=== PATIENT | female | born 1950 | race Caucasian/White ===

== ENCOUNTER 2017-05-27 14:27 | Observation (INO) | payer MEDICARE, MEDICAID ==
[~2017-05-27] VITALS: Ht 162.6 cm; Wt 49.0 kg
[~2017-05-27 14:27] MED LIST: ALBU18HF INH; ALBU2.5V NPPB; ALBU8.5H5 INH; ALBUTERO; AZIT250T89 PO; BUPR100T11 PO; BUPR100T8 PO; CEFD300C37 PO; CITA20TA5 PO; CYCL-259 PO; DIPH25CA61 PO; DIVA-68 PO; DIVA250T4 PO; DIVA500T2 PO; ERGO500017 PO; ETOD200C2 PO; ETOD400T2 PO; FLUT1DIS3 INH; HYDR-3240 PO; HYDR25CA PO; HYDR25TA11 PO; IBUP-1222 PO; IPRA12.9 INH; LACT10SO5 PO; LORA2TAB99 PO; METH750T2 PO; METH750T87 PO; MOTRIN PO; NAPR550T30 PO; NICO1PAT10 TD; NICO1PAT5 TD; OLAN10TA9 PO; OLAN15TA3 PO; OLAN2.5T3 PO; OLAN20TA7 PO; OLAN5TAB3 PO; OMEP-110 PO; OXYC5TAB3 PO; PANT40TA3 PO; QUET200T PO; QUET25TA5 PO; QUET50TA5 PO; RISP1TAB45 PO; SENN1TAB7 PO; SENN1TAB9 PO; SULF1TAB3 PO; TIOT18CA INH; TRAM50TA2 PO; TRAZ50TA18 PO
[2017-05-27 15:00] LABS: DAU SCREEN DISCLAIMER
[2017-05-27 15:14] LABS: BLOOD UREA NITROGEN 6 mg/dL (7-18)
[2017-05-27 15:26] LABS: DIFF TOTAL CELLS COUNTED 100 CELL DIFF; HEMATOCRIT 35.3 % (34.6-47.8); HEMOGLOBIN 11.2 g/dL (11.7-16.4); WHITE BLOOD COUNT 4.1 x10^3/uL (3.4-10)
[2017-05-27 15:35] LABS: VERIFY COUNTS? YES
[2017-05-27 15:36] LABS: ANISOCYTOSIS 1+; HYPOCHROMIA 1+; MICROCYTOSIS 1+; OVALOCYTES 1+; POLYCHROMASIA 1+
[2017-05-27 15:38] LABS: LARGE PLATELETS 1+
[2017-05-27 15:44] LABS: ACETAMINOPHEN < 2 mcg/mL (10-30)
[2017-05-27] MEDS ORDERED: NICOTINE 21 MG/24 HR PATCH.TD24 TD ONE (18:30)
[2017-05-27 18:44] LABS: FERRITIN 7.6 ng/mL (8-252)
[2017-05-27 19:56] VITALS: BP 109/64
[2017-05-27] MEDS ORDERED: OLANZAPINE 5 MG TABLET ONE (20:02)
[2017-05-27] MEDS: DIVALPROEX 500 MG TABLET.DR PO SCH (20:06)
[2017-05-27] MEDS ORDERED: OLANZAPINE 10 MG TABLET PO SCH (21:00)
[2017-05-27] MEDS ORDERED: OLANZAPINE 5 MG TABLET PO SCH (21:00)
[2017-05-28 08:50] VITALS: BP 119/77
[2017-05-28] MEDS: DIVALPROEX 500 MG TABLET.DR PO SCH (09:17)
[2017-05-28] MEDS ORDERED: FERR325T20 PO (11:35)
[2017-05-28] MEDS ORDERED: HYDR25TA11 PO (11:35)
[2017-05-28] MEDS ORDERED: OLAN5TAB9 PO (11:35)
[2017-05-28] MEDS ORDERED: DIVA-68 PO (11:35)
== END 2017-05-28 13:30 ==
LOC: ED 18:20 → EDIP 18:30 → 3E 19:09
PROVIDERS: ADMIT Family Medicine; ATTEND Family Medicine
DX: R45.851 Suicidal ideations (principal); F31.9 Bipolar disorder, unspecified; J44.9 Chronic obstructive pulmonary disease, unspecified; M81.0 Age-related osteoporosis without current pathological fracture; F17.210 Nicotine dependence, cigarettes, uncomplicated; F12.90 Cannabis use, unspecified, uncomplicated; F15.90 Other stimulant use, unspecified, uncomplicated; E61.1 Iron deficiency; R45.850 Homicidal ideations; Z80.3 Family history of malignant neoplasm of breast; Z91.5 Personal history of self-harm; Z91.19 Patient's noncompliance with other medical treatment and regimen; Z90.49 Acquired absence of other specified parts of digestive tract; Z90.710 Acquired absence of both cervix and uterus; Z91.14 Patient's other noncompliance with medication regimen
CPT/HCPCS: 36415; 80048; 80307; 80329; 82040; 82728; 83540; 83550; 85025; 99285; G0378; G0480

== ENCOUNTER 2017-09-25 13:21 | Inpatient (IN) | payer MEDICARE, MEDICAID ==
[~2017-09-25] VITALS: Ht 157.5 cm; Wt 42.5 kg
[~2017-09-25 13:21] MED LIST changes: +FERR325T18 PO; +NAPR-850 PO; -NAPR550T30 PO; +NICO-485 TD; +NICO-487 TD; -NICO1PAT10 TD; -NICO1PAT5 TD; +OLAN5TAB9 PO; +SULF-169 PO; -SULF1TAB3 PO
[2017-09-25] MEDS ORDERED: SODIUM CHLORIDE 0.9% 1,000ML IVBOLUS ONE (13:30)
[2017-09-25] MEDS ORDERED: SODIUM CHLORIDE FLUSH 10ML SYR IVF ONE (13:30)
[2017-09-25] MEDS ORDERED: SODIUM CHLORIDE 0.9% 1,000 ML IV ONE (13:30)
[2017-09-25 13:59] LABS: BASOPHILS # (AUTO) 0.05 x10^3/uL (0-0.1); BASOPHILS % (AUTO) 1 % (0-1); EOSINOPHILS # (AUTO) 0.08 x10^3/uL (0-0.4); EOSINOPHILS % (AUTO) 2 % (1-7); LYMPHOCYTES # (AUTO) 1.43 x10^3/uL (1-3.4); LYMPHOCYTES % (AUTO) 38 % (22-44); MD NO; MEAN CORPUSCULAR HEMOGLOBIN 31.7 pg (27.0-34.8); MEAN CORPUSCULAR HGB CONC 34.4 g/dL (32.4-35.8); MEAN CORPUSCULAR VOLUME 92.3 fL (80-100); MEAN PLATELET VOLUME 8.6 fL (7.4-10.4); MONOCYTES # (AUTO) 0.42 x10^3/uL (0.2-0.8); MONOCYTES % (AUTO) 11 % (2-9); NEUTROPHILS % (AUTO) 48 % (42-75); PLATELET COUNT 209 x10^3/uL (130-400); RED BLOOD COUNT 4.88 x10^6/uL (3.82-5.3); RED CELL DISTRIBUTION WIDTH 16.4 % (9.6-15.2)
[2017-09-25 14:05] LABS: INTERNATIONAL NORMALIZED RATIO 1.14 (0.93-1.1); PROTHROMBIN TIME 11.7 Seconds (9.6-11.5)
[2017-09-25 14:09] LABS: ALBUMIN 3.7 g/dL (3.4-5.0); ANION GAP 15 mmol/L (5-15); CHLORIDE 105 mmol/L (98-107)
[2017-09-25 14:14] LABS: ALANINE AMINOTRANSFERASE 22 U/L (12-78); ALKALINE PHOSPHATASE 70 U/L (45-117); CREATINE KINASE, TOTAL 250 U/L (26-192); CREATININE 0.63 mg/dL (0.55-1.02); TOTAL PROTEIN 7.5 g/dL (6.4-8.2); TROPONIN I 0.016 ng/mL (0.000-0.045)
[2017-09-25 14:44] LABS: CULTURE INDICATED? YES; MICROSCOPIC INDICATED
[2017-09-25] MEDS ORDERED: SODIUM CHLORIDE FLUSH 10ML SYR IVF PRN (17:00)
[2017-09-25] MEDS ORDERED: ONDANSETRON ODT 4 MG PO PRN (17:00)
[2017-09-25] MEDS ORDERED: GUAIFENESIN/DM 200-20MG, 10ML UDC PO PRN (17:00)
[2017-09-25] MEDS ORDERED: LABETALOL 5MG/ML, 20ML IVPush PRN (17:00)
[2017-09-25] MEDS ORDERED: POLYETHYLENE GLYCOL 17 GM PACKET PO PRN (17:00)
[2017-09-25] MEDS ORDERED: ONDANSETRON 2MG/ML, 2ML IVPush PRN (17:00)
[2017-09-25 17:28] LABS: INTERNATIONAL NORMALIZED RATIO 1.13 (0.93-1.1); PROTHROMBIN TIME 11.6 Seconds (9.6-11.5)
[2017-09-25 17:45] LABS: FREE T4 (FREE THYROXINE) 1.13 ng/dL (0.76-1.46); TROPONIN I 0.027 ng/mL (0.000-0.045)
[2017-09-25 18:22] VITALS: BP 124/76
[2017-09-25] MEDS: SODIUM CHLORIDE 0.9% 1,000 ML IV SCH (18:31)
[2017-09-25] MEDS: FERROUS SULFATE 325 MG TABLET PO SCH (19:35)
[2017-09-25] MEDS: HYDROcodone/APAP 5/325 TABLET PO PRN (19:35)
[2017-09-25] MEDS: DIVALPROEX 500 MG TABLET.DR PO SCH (19:35)
[2017-09-25] MEDS: ENOXAPARIN 40 MG/0.4 ML SQ SCH (19:36)
[2017-09-25 20:12] VITALS: BP 99/60
[2017-09-25] MEDS: FAMOTIDINE 20 MG/2 ML IVPush SCH (21:17)
[2017-09-25 23:23] LABS: TROPONIN I 0.036 ng/mL (0.000-0.045)
[2017-09-26 01:25] VITALS: BP 106/57
[2017-09-26] MEDS: SODIUM CHLORIDE 0.9% 1,000 ML IV SCH ×2 (02:42→15:17)
[2017-09-26 05:51] LABS: BASOPHILS # (AUTO) 0.03 x10^3/uL (0-0.1); BASOPHILS % (AUTO) 1 % (0-1); EOSINOPHILS % (AUTO) 3 % (1-7); LYMPHOCYTES % (AUTO) 48 % (22-44); MD NO; MEAN CORPUSCULAR HGB CONC 34.5 g/dL (32.4-35.8); MEAN CORPUSCULAR VOLUME 92.6 fL (80-100); MEAN PLATELET VOLUME 8.7 fL (7.4-10.4); MONOCYTES # (AUTO) 0.42 x10^3/uL (0.2-0.8); MONOCYTES % (AUTO) 12 % (2-9); NEUTROPHILS # (AUTO) 1.21 x10^3/uL (1.8-6.8); NEUTROPHILS % (AUTO) 36 % (42-75); PLATELET COUNT 168 x10^3/uL (130-400); RED BLOOD COUNT 4.26 x10^6/uL (3.82-5.3); RED CELL DISTRIBUTION WIDTH 15.9 % (9.6-15.2)
[2017-09-26 06:03] LABS: CHLORIDE 109 mmol/L (98-107)
[2017-09-26 06:15] LABS: ALANINE AMINOTRANSFERASE 18 U/L (12-78); ALBUMIN 2.9 g/dL (3.4-5.0); ALKALINE PHOSPHATASE 58 U/L (45-117); ANION GAP 8 mmol/L (5-15); BILIRUBIN,TOTAL 0.6 mg/dL (0.2-1.0); CALCIUM 8.4 mg/dL (8.5-10.1); CHOL/HDL RATIO 3.5; CHOLESTEROL, TOTAL 129 mg/dL (140-239); CREATININE 0.55 mg/dL (0.55-1.02); HDL CHOL % 29 % (28-40); HDL CHOLESTEROL (DIRECT) 37 mg/dL (40-60); LDL CHOLESTEROL,CALCULATED 79 mg/dL (54-169); LDL/HDL RATIO 2.1 (0.5-3.0); TOTAL PROTEIN 5.9 g/dL (6.4-8.2); TRIGLYCERIDES 66 mg/dL (50-200); VLDL CHOLESTEROL 13 mg/dL (0-25)
[2017-09-26 08:28] VITALS: BP 109/68
[2017-09-26] MEDS: FAMOTIDINE 20 MG/2 ML IVPush SCH ×2 (08:40→21:24)
[2017-09-26] MEDS: FERROUS SULFATE 325 MG TABLET PO SCH ×2 (08:40→21:24)
[2017-09-26] MEDS: SENNA/DOCUSATE TABLET PO SCH (08:40)
[2017-09-26] MEDS: DIVALPROEX 500 MG TABLET.DR PO SCH ×2 (08:40→21:24)
[2017-09-26] MEDS ORDERED: MAGNESIUM SULFATE PMX 2GM/50ML 50 ML IV ONE (10:00)
[2017-09-26 14:30] VITALS: BP 112/72
[2017-09-26] MEDS: HYDROcodone/APAP 5/325 TABLET PO PRN ×2 (15:16→21:24)
[2017-09-26 19:30] VITALS: BP 102/63
[2017-09-26] MEDS: ENOXAPARIN 40 MG/0.4 ML SQ SCH (21:24)
[2017-09-27 01:48] VITALS: BP 110/62
[2017-09-27] MEDS: SODIUM CHLORIDE 0.9% 1,000 ML IV SCH ×3 (03:50→16:37)
[2017-09-27 08:00] VITALS: BP 142/80
[2017-09-27 08:10] LABS: ALBUMIN 2.7 g/dL (3.4-5.0); CALCIUM 7.9 mg/dL (8.5-10.1); CHLORIDE 112 mmol/L (98-107)
[2017-09-27 08:15] LABS: ALANINE AMINOTRANSFERASE 18 U/L (12-78); ALKALINE PHOSPHATASE 52 U/L (45-117); ANION GAP 6 mmol/L (5-15); BILIRUBIN,TOTAL 0.6 mg/dL (0.2-1.0); CREATININE 0.41 mg/dL (0.55-1.02); TOTAL PROTEIN 5.6 g/dL (6.4-8.2)
[2017-09-27 08:17] LABS: MEAN CORPUSCULAR HEMOGLOBIN 32.6 pg (27.0-34.8); MEAN CORPUSCULAR HGB CONC 35.3 g/dL (32.4-35.8); MEAN CORPUSCULAR VOLUME 92.4 fL (80-100); MEAN PLATELET VOLUME 8.9 fL (7.4-10.4); PLATELET COUNT 158 x10^3/uL (130-400); RED BLOOD COUNT 4.06 x10^6/uL (3.82-5.3)
[2017-09-27] MEDS: FERROUS SULFATE 325 MG TABLET PO SCH ×2 (08:53→20:28)
[2017-09-27] MEDS: DIVALPROEX 500 MG TABLET.DR PO SCH ×2 (08:53→20:28)
[2017-09-27] MEDS: SENNA/DOCUSATE TABLET PO SCH (08:53)
[2017-09-27] MEDS: FAMOTIDINE 20 MG/2 ML IVPush SCH (08:53)
[2017-09-27 09:10] LABS: BASOPHILS # (AUTO) 0.03 x10^3/uL (0-0.1); BASOPHILS % (AUTO) 1 % (0-1); EOSINOPHILS # (AUTO) 0.08 x10^3/uL (0-0.4); EOSINOPHILS % (AUTO) 3 % (1-7); LYMPHOCYTES # (AUTO) 1.25 x10^3/uL (1-3.4); LYMPHOCYTES % (AUTO) 52 % (22-44); MD SCAN; MONOCYTES # (AUTO) 0.23 x10^3/uL (0.2-0.8); MONOCYTES % (AUTO) 10 % (2-9); NEUTROPHILS # (AUTO) 0.82 x10^3/uL (1.8-6.8); NEUTROPHILS % (AUTO) 34 % (42-75)
[2017-09-27] MEDS ORDERED: IBUPROFEN 200 MG TABLET PO PRN (09:30)
[2017-09-27] MEDS ORDERED: POTASSIUM CHLORIDE 20 MEQ TAB.ER.PRT PO ONE (13:00)
[2017-09-27 14:34] VITALS: BP 146/78
[2017-09-27 16:25] LABS: ANION GAP 9 mmol/L (5-15); CALCIUM 7.8 mg/dL (8.5-10.1); CHLORIDE 109 mmol/L (98-107); CREATININE 0.57 mg/dL (0.55-1.02)
[2017-09-27 16:31] LABS: CREATINE KINASE, TOTAL 170 U/L (26-192)
[2017-09-27 19:58] VITALS: BP 99/59
[2017-09-27] MEDS: FAMOTIDINE 20 MG TABLET PO SCH (20:28)
[2017-09-27] MEDS: ENOXAPARIN 40 MG/0.4 ML SQ SCH (20:28)
[2017-09-28 02:00] VITALS: BP 104/76
[2017-09-28] MEDS: SODIUM CHLORIDE 0.9% 1,000 ML IV SCH (06:46)
[2017-09-28 07:05] VITALS: BP 111/69
[2017-09-28] MEDS ORDERED: POTASSIUM CHLORIDE 20 MEQ TAB.ER.PRT PO ONE (08:00)
[2017-09-28] MEDS: SENNA/DOCUSATE TABLET PO SCH (09:00)
[2017-09-28] MEDS: DIVALPROEX 500 MG TABLET.DR PO SCH (09:06)
[2017-09-28] MEDS: FAMOTIDINE 20 MG TABLET PO SCH (09:06)
[2017-09-28] MEDS: FERROUS SULFATE 325 MG TABLET PO SCH (09:07)
[2017-09-28 11:30] LABS: ANION GAP 6 mmol/L (5-15); CHLORIDE 111 mmol/L (98-107); CREATININE 0.43 mg/dL (0.55-1.02)
[2017-09-28 12:59] VITALS: BP 119/78
[2017-09-28] MEDS ORDERED: FAMO20TA7 PO (15:58)
== END 2017-09-28 18:54 | DRG 557 ==
LOC: ED 14:52 → EDIP 16:37 → 4EST 17:41
PROVIDERS: ADMIT Hospitalist; ATTEND Hospitalist
PROC: 0T9B70Z Drainage of Bladder with Drainage Device, Via Natural or Artificial Opening (ICD-10-PCS; principal; 2017-09-25)
DX: M62.82 Rhabdomyolysis (principal); E43 Unspecified severe protein-calorie malnutrition; Z93.0 Tracheostomy status; J44.9 Chronic obstructive pulmonary disease, unspecified; R62.7 Adult failure to thrive; E87.6 Hypokalemia; R73.9 Hyperglycemia, unspecified; E86.0 Dehydration; M81.0 Age-related osteoporosis without current pathological fracture; F17.210 Nicotine dependence, cigarettes, uncomplicated; F31.9 Bipolar disorder, unspecified; F41.1 Generalized anxiety disorder; Z80.0 Family history of malignant neoplasm of digestive organs; Z80.3 Family history of malignant neoplasm of breast; Z83.3 Family history of diabetes mellitus; Z90.710 Acquired absence of both cervix and uterus; Z90.49 Acquired absence of other specified parts of digestive tract; Z88.0 Allergy status to penicillin
CPT/HCPCS: 36415; 70450; 71010; 80048; 80053; 80061; 81001; 82140; 82550; 83605; 83690; 83735; 84100; 84311; 84439; 84484; 84550; 85025; 85610; 85730; 87040; 87086; 93005; 93306; 96360; 96361; J1650; J3475; J7030; S0028

== ENCOUNTER 2017-12-31 19:45 | Emergency (ER) | payer MEDICARE, MEDICAID ==
[~2017-12-31] VITALS: Ht 162.6 cm; Wt 55.0 kg
[~2017-12-31 19:45] MED LIST changes: +FAMO20TA7 PO
[2017-12-31 19:47] VITALS: BP 120/78
[2017-12-31] MEDS ORDERED: LAMO25TB PO (21:08)
[2017-12-31] MEDS ORDERED: ALPR0.254 PO (21:08)
[2017-12-31] MEDS ORDERED: LEVO25TA4 PO (21:09)
== END 2017-12-31 21:53 | disposition home or self-care (01) ==
LOC: ED 21:45
DX: F41.1 Generalized anxiety disorder (principal); F31.9 Bipolar disorder, unspecified; G89.29 Other chronic pain; J44.9 Chronic obstructive pulmonary disease, unspecified
CPT/HCPCS: 82962; 93005; 99284

== ENCOUNTER 2018-06-03 16:58 | Observation (INO) | payer MEDICARE, MEDICAID ==
[~2018-06-03] VITALS: Ht 162.6 cm; Wt 48.0 kg
[~2018-06-03 16:58] MED LIST changes: +ALPR0.254 PO; -CITA20TA5 PO; +CITA20TA6 PO; +DIVA-61 PO; -DIVA-68 PO; +LAMO25TB7 PO; +LEVO25TA4 PO; +OLAN20TA3 PO; +TRAZ-136 PO; -TRAZ50TA18 PO
[2018-06-03] MEDS ORDERED: LORazepam 1MG TABLET PO ONE (17:30)
[2018-06-03] MEDS ORDERED: LORazepam 1MG TABLET ONE (17:37)
[2018-06-03 17:47] LABS: BASOPHILS # (AUTO) 0.05 x10^3/uL (0-0.1); BASOPHILS % (AUTO) 1 % (0-1); EOSINOPHILS % (AUTO) 2 % (1-7); LYMPHOCYTES # (AUTO) 2.19 x10^3/uL (1-3.4); LYMPHOCYTES % (AUTO) 38 % (22-44); MD NO; MEAN CORPUSCULAR HEMOGLOBIN 33.9 pg (27.0-34.8); MEAN CORPUSCULAR HGB CONC 34.5 g/dL (32.4-35.8); MEAN CORPUSCULAR VOLUME 98.3 fL (80-100); MEAN PLATELET VOLUME 7.8 fL (7.4-10.4); MONOCYTES # (AUTO) 0.49 x10^3/uL (0.2-0.8); MONOCYTES % (AUTO) 8 % (2-9); NEUTROPHILS % (AUTO) 51 % (42-75); PLATELET COUNT 314 x10^3/uL (130-400); RED BLOOD COUNT 4.65 x10^6/uL (3.82-5.3); RED CELL DISTRIBUTION WIDTH 13.6 % (9.6-15.2)
[2018-06-03 17:54] LABS: ALBUMIN 4.2 g/dL (3.4-5.0); ANION GAP 9 mmol/L (5-15); CALCIUM 8.8 mg/dL (8.5-10.1); CHLORIDE 111 mmol/L (98-107); CREATININE 0.94 mg/dL (0.55-1.02); SALICYLATE LEVEL 10.9 mg/dL (2.8-20.0)
[2018-06-03 17:58] LABS: AMPHETAMINE SCREEN, URINE Negative (Negative); BARBITURATE SCREEN, URINE Negative (Negative); BENZODIAZEPINE SCREEN, URINE Negative (Negative); CANNABINOID SCREEN, URINE Negative (Negative); COCAINE SCREEN, URINE Negative (Negative); METHADONE SCREEN, URINE Negative (Negative); OPIATE SCREEN, URINE Negative (Negative)
[2018-06-03 18:07] LABS: ACETAMINOPHEN < 2 mcg/mL (10-30)
[2018-06-03] MEDS ORDERED: POLYETHYLENE GLYCOL 17 GM PACKET PO PRN (19:30)
[2018-06-03] MEDS ORDERED: ACETAMINOPHEN 325 MG TABLET PO PRN (19:30)
[2018-06-03] MEDS ORDERED: ONDANSETRON ODT 4 MG PO PRN (19:30)
[2018-06-03 20:07] VITALS: BP 122/68
[2018-06-04] MEDS ORDERED: LEVOTHYROXINE 25 MCG TABLET PO SCH ×2 (06:00→09:00)
== END 2018-06-04 06:26 ==
LOC: ED 18:16 → EDIP 18:17 → ED 18:30 → 2N 19:48
PROVIDERS: ADMIT Hospitalist; ATTEND Hospitalist
DX: F41.9 Anxiety disorder, unspecified (principal); F41.0 Panic disorder [episodic paroxysmal anxiety]; E03.9 Hypothyroidism, unspecified; F31.9 Bipolar disorder, unspecified; J44.9 Chronic obstructive pulmonary disease, unspecified; M81.0 Age-related osteoporosis without current pathological fracture; R45.851 Suicidal ideations; F17.200 Nicotine dependence, unspecified, uncomplicated; Z90.710 Acquired absence of both cervix and uterus; Z91.14 Patient's other noncompliance with medication regimen
CPT/HCPCS: 36415; 80048; 80307; 80329; 82040; 84443; 85025; 99285; G0378; G0480

== ENCOUNTER 2019-02-13 15:24 | Emergency (ER) | payer MEDICARE, MEDICAID ==
[~2019-02-13] VITALS: Ht 162.6 cm; Wt 71.1 kg
[~2019-02-13 15:24] MED LIST changes: +SENN-177 PO; +SENN-178 PO; -SENN1TAB7 PO; -SENN1TAB9 PO; -TRAZ-136 PO; +TRAZ50TA66 PO
[2019-02-13 16:29] LABS: BASOPHILS # (AUTO) 0.09 x10^3/uL (0-0.1); BASOPHILS % (AUTO) 1 % (0-1); EOSINOPHILS # (AUTO) 0.19 x10^3/uL (0-0.4); EOSINOPHILS % (AUTO) 2 % (1-7); LYMPHOCYTES # (AUTO) 1.78 x10^3/uL (1-3.4); LYMPHOCYTES % (AUTO) 14 % (22-44); MD NO; MEAN CORPUSCULAR HEMOGLOBIN 30.7 pg (27.0-34.8); MEAN CORPUSCULAR HGB CONC 33.3 g/dL (32.4-35.8); MEAN CORPUSCULAR VOLUME 91.9 fL (80-100); MEAN PLATELET VOLUME 8.2 fL (7.4-10.4); MONOCYTES # (AUTO) 1.04 x10^3/uL (0.2-0.8); MONOCYTES % (AUTO) 8 % (2-9); NEUTROPHILS # (AUTO) 9.41 x10^3/uL (1.8-6.8); NEUTROPHILS % (AUTO) 75 % (42-75); PLATELET COUNT 318 x10^3/uL (130-400); RED CELL DISTRIBUTION WIDTH 13.4 % (9.6-15.2)
[2019-02-13 16:40] LABS: ANION GAP 8 mmol/L (5-15); CALCIUM 8.9 mg/dL (8.5-10.1); CHLORIDE 106 mmol/L (98-107)
[2019-02-13 16:41] LABS: CREATININE 1.08 mg/dL (0.55-1.02)
[2019-02-13] MEDS ORDERED: KETOROLAC 30 MG/1 ML ONE (16:58)
[2019-02-13] MEDS ORDERED: KETOROLAC 30 MG/1 ML IM ONE (17:00)
--- NOTE | 2019-02-13 17:07 | NUR ---
Pt presents from home for increasing pain to bilateral lower legs and soles of feet. Worse on L side. Pt states pain has jarrell there x 2 nights. Worsening. Pt states sitting helps for a moment then pain returns. CSM intact with weak pulses on L leg. Pt also had episode of diarrhea while walking to ED.
[2019-02-13 17:24] LABS: CLOSTRIDIUM DIFFICILE ANTIGEN NEGATIVE; CLOSTRIDIUM DIFFICILE TOXIN NEGATIVE (Negative)
[2019-02-13 17:33] LABS: FREE T4 (FREE THYROXINE) 1.02 ng/dL (0.76-1.46)
[2019-02-13 18:58] VITALS: BP 109/76
== END 2019-02-13 19:21 | disposition home or self-care (01) ==
LOC: ED 18:05
DX: R53.1 Weakness (principal); L55.0 Sunburn of first degree; M25.572 Pain in left ankle and joints of left foot; M25.571 Pain in right ankle and joints of right foot; M79.672 Pain in left foot; M79.671 Pain in right foot; Z90.49 Acquired absence of other specified parts of digestive tract; Z90.710 Acquired absence of both cervix and uterus; Z90.89 Acquired absence of other organs; Z88.0 Allergy status to penicillin; Z88.8 Allergy status to other drugs, medicaments and biological substances
CPT/HCPCS: 36415; 73610; 80048; 84439; 84443; 85025; 87324; 89055; 96372; 99284; J1885; 99283

== ENCOUNTER 2019-02-16 13:37 | Emergency (ER) | payer MEDICARE, MEDICAID ==
[~2019-02-16] VITALS: Ht 162.6 cm; Wt 68.0 kg
[2019-02-16 14:14] VITALS: BP 162/85
[2019-02-16 14:25] LABS: BASOPHILS # (AUTO) 0.02 x10^3/uL (0-0.1); BASOPHILS % (AUTO) 0 % (0-1); EOSINOPHILS % (AUTO) 5 % (1-7); LYMPHOCYTES # (AUTO) 1.33 x10^3/uL (1-3.4); LYMPHOCYTES % (AUTO) 18 % (22-44); MD NO; MEAN CORPUSCULAR HEMOGLOBIN 30.7 pg (27.0-34.8); MEAN CORPUSCULAR HGB CONC 33.3 g/dL (32.4-35.8); MEAN CORPUSCULAR VOLUME 92.1 fL (80-100); MEAN PLATELET VOLUME 7.7 fL (7.4-10.4); MONOCYTES # (AUTO) 0.91 x10^3/uL (0.2-0.8); MONOCYTES % (AUTO) 12 % (2-9); NEUTROPHILS # (AUTO) 4.94 x10^3/uL (1.8-6.8); NEUTROPHILS % (AUTO) 65 % (42-75); PLATELET COUNT 335 x10^3/uL (130-400); RED BLOOD COUNT 4.09 x10^6/uL (3.82-5.3); RED CELL DISTRIBUTION WIDTH 13.7 % (9.6-15.2)
[2019-02-16 14:29] LABS: ALANINE AMINOTRANSFERASE 18 U/L (12-78); ALBUMIN 3.4 g/dL (3.4-5.0); ANION GAP 4 mmol/L (5-15); CALCIUM 9.1 mg/dL (8.5-10.1); CHLORIDE 110 mmol/L (98-107); CREATININE 0.92 mg/dL (0.55-1.02)
[2019-02-16 14:31] LABS: ALKALINE PHOSPHATASE 125 U/L (45-117); BILIRUBIN,TOTAL 0.2 mg/dL (0.2-1.0); TOTAL PROTEIN 7.4 g/dL (6.4-8.2)
== END 2019-02-16 17:25 | disposition home or self-care (01) ==
LOC: ED 14:27
DX: L03.116 Cellulitis of left lower limb (principal); L03.115 Cellulitis of right lower limb; F17.200 Nicotine dependence, unspecified, uncomplicated; J44.9 Chronic obstructive pulmonary disease, unspecified; F32.9 Major depressive disorder, single episode, unspecified; F09 Unspecified mental disorder due to known physiological condition; Z90.710 Acquired absence of both cervix and uterus; Z72.89 Other problems related to lifestyle; Z87.01 Personal history of pneumonia (recurrent)
CPT/HCPCS: 36415; 80053; 83605; 85025; 87040; 99283

== ENCOUNTER 2019-08-05 00:41 | Emergency (ER) | payer MEDICARE, MEDICAID ==
[~2019-08-05] VITALS: Ht 162.6 cm; Wt 58.2 kg
[~2019-08-05 00:41] MED LIST changes: +HYDR-826 PO; -HYDR25TA11 PO; +OLAN20TA14 PO; -OLAN20TA7 PO
--- NOTE | 2019-08-05 00:56 | NUR ---
Patient into room, patient speaking to no one in particular. Dishevelled appearance, RN to bedside asked patient to remove sweater to attach patient to monitor, patient verbalizes "Oh yeah, I know, top off." but then patient continues to speak in disconnected sentences for which most of the language is not understandable. Patient sounds upset based on tone and volume, but is not understandable. Awaiting assessment by provider.
--- NOTE | 2019-08-05 01:28 | NUR ---
Medical student to bedside, considerable time spent allowing patient to talk through. Patient appears less anxious, rate of speech has slowed, volume has slowed and patient's untargeted speech has also diminished. Awaiting orders or plan of care.
[2019-08-05] MEDS ORDERED: HALOPERIDOL 5 MG/ML IM ONE (02:00)
[2019-08-05] MEDS ORDERED: HALOPERIDOL 5 MG/ML ONE (02:03)
--- NOTE | 2019-08-05 02:19 | NUR ---
RN to bedside, patient finally agreeable to being placed on monitor. patient provided warm blankets, given medication per mar and attached to blood pressure and SpO2 monitor. VSS. Awaiting metabolization of alcohol. Patient still continues to talk in loose unconnected thoughts with mostly poorly enunciated and not understandable words, but without the volume or rate indicating agitation.
[2019-08-05 04:03] VITALS: BP 101/52
== END 2019-08-05 08:10 | disposition home or self-care (01) ==
LOC: ED 00:56
DX: F31.9 Bipolar disorder, unspecified (principal); F15.129 Other stimulant abuse with intoxication, unspecified; Z72.9 Problem related to lifestyle, unspecified; J44.9 Chronic obstructive pulmonary disease, unspecified; I51.9 Heart disease, unspecified; Z90.49 Acquired absence of other specified parts of digestive tract; Z90.710 Acquired absence of both cervix and uterus
CPT/HCPCS: 96372; 99284; J1630

== ENCOUNTER 2019-08-22 21:50 | Emergency (ER) | payer MEDICARE, MEDICAID ==
[~2019-08-22] VITALS: Ht 162.6 cm; Wt 62.1 kg
[~2019-08-22 21:50] MED LIST changes: +LACT10SO24 PO; -LACT10SO5 PO
[2019-08-22 21:52] VITALS: BP 160/88
== END 2019-08-22 23:07 | disposition home or self-care (01) ==
LOC: ED 23:05
DX: F31.9 Bipolar disorder, unspecified (principal); M81.0 Age-related osteoporosis without current pathological fracture; I51.9 Heart disease, unspecified; J43.9 Emphysema, unspecified; F17.210 Nicotine dependence, cigarettes, uncomplicated; Z72.89 Other problems related to lifestyle; Z90.49 Acquired absence of other specified parts of digestive tract; Z90.710 Acquired absence of both cervix and uterus; Z59.0 Homelessness
CPT/HCPCS: 99284

== ENCOUNTER 2019-08-26 23:50 | Emergency (ER) | payer MEDICARE, MEDICAID ==
[~2019-08-26] VITALS: Ht 157.5 cm; Wt 59.9 kg
[2019-08-27] MEDS ORDERED: KETOROLAC 30 MG/1 ML ONE (00:10)
[2019-08-27] MEDS ORDERED: KETOROLAC 30 MG/1 ML IM ONE (00:30)
[2019-08-27 00:39] LABS: BASOPHILS # (AUTO) 0.04 x10^3/uL (0-0.1); BASOPHILS % (AUTO) 1 % (0-1); EOSINOPHILS # (AUTO) 0.35 x10^3/uL (0-0.4); EOSINOPHILS % (AUTO) 6 % (1-7); LYMPHOCYTES # (AUTO) 1.96 x10^3/uL (1-3.4); LYMPHOCYTES % (AUTO) 36 % (22-44); MD NO; MEAN CORPUSCULAR HEMOGLOBIN 30.9 pg (27.0-34.8); MEAN CORPUSCULAR HGB CONC 32.4 g/dL (32.4-35.8); MEAN CORPUSCULAR VOLUME 95.2 fL (80-100); MEAN PLATELET VOLUME 8.1 fL (7.4-10.4); MONOCYTES % (AUTO) 13 % (2-9); NEUTROPHILS # (AUTO) 2.46 x10^3/uL (1.8-6.8); NEUTROPHILS % (AUTO) 45 % (42-75); PLATELET COUNT 319 x10^3/uL (130-400); RED CELL DISTRIBUTION WIDTH 14.8 % (9.6-15.2)
[2019-08-27 00:48] LABS: ALBUMIN 3.5 g/dL (3.4-5.0); ANION GAP 5 mmol/L (5-15); CALCIUM 8.6 mg/dL (8.5-10.1); CHLORIDE 112 mmol/L (98-107)
[2019-08-27 00:52] LABS: TROPONIN I < 0.015 ng/mL (0.000-0.045)
--- NOTE | 2019-08-27 01:24 | NUR ---
TAXI VOUCHER GIVEN TO THE PT.
[2019-08-27 01:32] VITALS: BP 139/71
--- NOTE | 2019-08-27 01:32 | NUR ---
ERP AT BEDSIDE WHEN LATEST BP TAKEN.
--- NOTE | 2019-08-27 01:46 | NUR ---
D/C INST REVIEWED W/ THE PT TO INCLUDE A SAFE D/C. THE PT VERB UNDERSTANDING AND DENIES QUESTIONS. THE PT VERB THAT SHE DOES "FEEL SO MUCH BETTER". THE PT AMB OUT OF THE ED W/ D/C INST AND A TAXI VOUCHER TO THE [facility] PER THE PT REQUEST, "THAT WAY I CAN CATCH THE BUS IN THE MORNING HOME".
--- NOTE | 2019-08-27 02:02 | NUR ---
THE PT AMB OUT OF THE ED W/O DIFF.
== END 2019-08-27 02:03 | disposition home or self-care (01) ==
LOC: ED 08-27 01:51
DX: S16.1XXA Strain of muscle, fascia and tendon at neck level, initial encounter (principal); R07.89 Other chest pain; R51 Headache; M54.2 Cervicalgia; J44.9 Chronic obstructive pulmonary disease, unspecified; F41.8 Other specified anxiety disorders; X58.XXXA Exposure to other specified factors, initial encounter; Y93.89 Activity, other specified; Y92.89 Other specified places as the place of occurrence of the external cause; Y99.8 Other external cause status
CPT/HCPCS: 36415; 71045; 80048; 82040; 84484; 85025; 93005; 96372; 99284; J1885

== ENCOUNTER 2019-09-04 03:55 | Emergency (ER) | payer MEDICARE, MEDICAID ==
[~2019-09-04] VITALS: Ht 160 cm; Wt 68.0 kg
[2019-09-04 04:00] VITALS: BP 119/75
[2019-09-04] MEDS ORDERED: ACETAMINOPHEN 325 MG TABLET ONE (04:59)
[2019-09-04] MEDS ORDERED: ACETAMINOPHEN 325 MG TABLET PO ONE (05:00)
== END 2019-09-04 05:24 | disposition home or self-care (01) ==
LOC: ED 04:34
DX: M79.672 Pain in left foot (principal); M79.671 Pain in right foot; J44.9 Chronic obstructive pulmonary disease, unspecified; F31.9 Bipolar disorder, unspecified; F41.1 Generalized anxiety disorder; F99 Mental disorder, not otherwise specified; F17.200 Nicotine dependence, unspecified, uncomplicated; Z72.9 Problem related to lifestyle, unspecified; Z75.9 Unspecified problem related to medical facilities and other health care; Z91.14 Patient's other noncompliance with medication regimen; Z63.8 Other specified problems related to primary support group; Z90.49 Acquired absence of other specified parts of digestive tract; Z90.710 Acquired absence of both cervix and uterus
CPT/HCPCS: 99283

== ENCOUNTER 2019-09-26 05:06 | Emergency (ER) | payer MEDICARE, MEDICAID ==
[~2019-09-26] VITALS: Ht 162.6 cm; Wt 52.0 kg
--- NOTE | 2019-09-26 05:15 | NUR ---
LATE ENTRY: OPAL BROOKS FROM [facility]. PT. STATES "I SMOKED A CIGARETTE AND THE SMOKE GOT TRAPPED IN MY LUNGS AND NOW I CAN'T BRATHE." PT. WITH RAMBLING/RAPID SPEECH. RA SAT 97%. REFUSED ASSESSMENTS BY CECILIA. JUST KEEPS STATING "I CAN'T BREATHE". PT. CONNECTED TO ALL MONITORS BUT REFUSING EKG. PT. DID CHANGE INTO GOWN WHEN REQUESTED. DR. KHAN IN TO EVAL PT. AND DISCUSS POC; ABLE TO CONVINCE PT. TO COOPERATE WITH EKG; TECH AT FOR THIS. CALL LIGHT IN REACH. ALL SAFETY MEASURES OBSRVED.
--- NOTE | 2019-09-26 05:35 | NUR ---
EKG DONE AND PRESENTED TO ERP NOW THAT PT. AGREEABLE.
[2019-09-26 05:45] LABS: BASOPHILS # (AUTO) 0.05 x10^3/uL (0-0.1); BASOPHILS % (AUTO) 1 % (0-1); EOSINOPHILS # (AUTO) 0.16 x10^3/uL (0-0.4); EOSINOPHILS % (AUTO) 3 % (1-7); LYMPHOCYTES # (AUTO) 1.74 x10^3/uL (1-3.4); LYMPHOCYTES % (AUTO) 34 % (22-44); MD NO; MEAN CORPUSCULAR HEMOGLOBIN 30.9 pg (27.0-34.8); MEAN CORPUSCULAR HGB CONC 32.6 g/dL (32.4-35.8); MEAN CORPUSCULAR VOLUME 94.8 fL (80-100); MEAN PLATELET VOLUME 9.5 fL (7.4-10.4); MONOCYTES # (AUTO) 0.82 x10^3/uL (0.2-0.8); MONOCYTES % (AUTO) 16 % (2-9); NEUTROPHILS % (AUTO) 46 % (42-75); PLATELET COUNT 247 x10^3/uL (130-400); RED BLOOD COUNT 4.22 x10^6/uL (3.82-5.3); RED CELL DISTRIBUTION WIDTH 15.3 % (9.6-15.2)
[2019-09-26 05:56] LABS: ALBUMIN 3.8 g/dL (3.4-5.0); ANION GAP 10 mmol/L (5-15); CALCIUM 9.3 mg/dL (8.5-10.1); CHLORIDE 110 mmol/L (98-107)
[2019-09-26 06:07] VITALS: BP 128/87
--- NOTE | 2019-09-26 06:07 | NUR ---
PT. RESTING ON GURNEY WITH EYES CLOSED. EVEN, NON-LABORED RESPIRATIONS VISIBLE. NO DISTRESS NOTED.
--- NOTE | 2019-09-26 06:30 | NUR ---
CHEST X-RAY COMPLETED AT THIS TIME. PT. CONTINUES TO DOSE OFF INTERMITTENTLY.
--- NOTE | 2019-09-26 07:00 | NUR ---
REPORT FROM RONALD, ASSUME CARE OF PT AT THIS TIME. AWAITING CXR READ.
--- NOTE | 2019-09-26 07:26 | NUR ---
PT GIVEN DISCHARGE INSTRUCTIONS, DISCONNECTED FROM MONITOR. PT REFUSING TO GET DRESSED, YELLING AND SWEARING AT STAFF. SECURITY CALLED TO ASSIST PT OUT OF DEPARTMENT.
== END 2019-09-26 07:31 | disposition home or self-care (01) ==
LOC: ED 07:25
DX: R06.00 Dyspnea, unspecified (principal); F29 Unspecified psychosis not due to a substance or known physiological condition; F15.90 Other stimulant use, unspecified, uncomplicated; Z72.89 Other problems related to lifestyle; Z59.0 Homelessness
CPT/HCPCS: 36415; 71045; 80048; 82040; 85025; 93005; 99284

== ENCOUNTER 2019-09-29 08:52 | Emergency (ER) | payer MEDICARE, MEDICAID ==
[~2019-09-29] VITALS: Ht 162.6 cm; Wt 55.1 kg
[2019-09-29 09:22] VITALS: BP 128/61
--- NOTE | 2019-09-29 10:24 | NUR ---
[facility]
== END 2019-09-29 11:38 | disposition home or self-care (01) ==
LOC: ED 11:25
DX: J44.9 Chronic obstructive pulmonary disease, unspecified (principal); L08.9 Local infection of the skin and subcutaneous tissue, unspecified; Z59.0 Homelessness; Z72.9 Problem related to lifestyle, unspecified; Z90.49 Acquired absence of other specified parts of digestive tract; Z90.710 Acquired absence of both cervix and uterus
CPT/HCPCS: 99283

== ENCOUNTER 2019-10-03 06:03 | Emergency (ER) | payer MEDICARE, MEDICAID ==
[~2019-10-03] VITALS: Ht 162.6 cm; Wt 50.0 kg
[2019-10-03] MEDS ORDERED: SODIUM CHLORIDE 0.9% 1,000 ML IV ONE (06:13)
[2019-10-03] MEDS ORDERED: SODIUM CHLORIDE FLUSH 10ML SYR IVF ONE (06:30)
--- NOTE | 2019-10-03 06:42 | NUR ---
69 YR OLD FEMALE ARRIVED VIA EMS, PER REPORT PT FOUND AT [facility], WONDERING AROUND. WHEN CONFRONTED PT STATED "I FEEL LIKE I'M GOING TO PASS OUT, MY FEET ARE FALLING OFF, MY BACK HURTS, MY NECK HURTS" PT ARRIVED WITH DRIED FECES TO KAREN AREA, JESSICA LEGS. SOCKS WET AND SMELL OF URINE. WHEN I EAT, IT JUST GOES RIGHT THROUGH ME. PT WITH NON STOP TALKING. "I HURT SO BAD, MY FEET ARE FALLING OFF. I CAME HERE AND YOU GAVE ME A CANE AND BRIDGETT WRAPS. I'M HOMELESS, ITS NOT MY FAULT, WHAT AM I SUPPOSE TO DO. I HAVE NO ONE AND ITS ALIRIO" PT ARRIVED WITH NS LOCK 20G IN RFA. RECEIVED NS 250MLS PIGS FEET CLEANER. BS 83. PT ASSISTED WITH KAREN CARE. INNER LEGS, BUTTOCKS EXCORIATED. BLISTERS, POPPED AND FORMED TO JESSICA HEELS. FEET MACERATED. RIGHT LITTLE TOE NAIL LIFTED. PT PLACED ON MONITORS. AUTO BP AND PULSE OX. PT PROVIDED WITH WARM BLANKETS. PT SLEEPING AFTER BLOOD DRAW.
[2019-10-03 06:53] LABS: BASOPHILS # (AUTO) 0.05 x10^3/uL (0-0.1); BASOPHILS % (AUTO) 1 % (0-1); EOSINOPHILS # (AUTO) 0.25 x10^3/uL (0-0.4); EOSINOPHILS % (AUTO) 5 % (1-7); LYMPHOCYTES # (AUTO) 1.37 x10^3/uL (1-3.4); LYMPHOCYTES % (AUTO) 25 % (22-44); MD NO; MEAN CORPUSCULAR HGB CONC 32.4 g/dL (32.4-35.8); MEAN CORPUSCULAR VOLUME 95.7 fL (80-100); MEAN PLATELET VOLUME 8.6 fL (7.4-10.4); MONOCYTES # (AUTO) 0.55 x10^3/uL (0.2-0.8); MONOCYTES % (AUTO) 10 % (2-9); NEUTROPHILS # (AUTO) 3.33 x10^3/uL (1.8-6.8); NEUTROPHILS % (AUTO) 60 % (42-75); PLATELET COUNT 229 x10^3/uL (130-400); RED BLOOD COUNT 3.94 x10^6/uL (3.82-5.3); RED CELL DISTRIBUTION WIDTH 16.3 % (9.6-15.2)
--- NOTE | 2019-10-03 06:54 | NUR ---
REPORT TO STEPHANIE ROBERSON
[2019-10-03 07:02] LABS: ALANINE AMINOTRANSFERASE 20 U/L (12-78); ALBUMIN 3.4 g/dL (3.4-5.0); ANION GAP 8 mmol/L (5-15); CALCIUM 8.5 mg/dL (8.5-10.1); CHLORIDE 113 mmol/L (98-107); CREATININE 0.74 mg/dL (0.55-1.02)
[2019-10-03 07:04] LABS: ALKALINE PHOSPHATASE 90 U/L (45-117); BILIRUBIN,TOTAL 0.6 mg/dL (0.2-1.0); TOTAL PROTEIN 7.1 g/dL (6.4-8.2)
[2019-10-03 08:30] VITALS: BP 121/70
--- NOTE | 2019-10-03 08:31 | NUR ---
DISCHARGE INSTRUCTIONS REVIEWED. PATIENT FEELS SHE CANT BE DISCHARGED BECUASE SHE HURTS EVERYWHERE. ERMD AND PHOTO MASK PROCESSOR NOTIFIED.
--- NOTE | 2019-10-03 09:32 | NUR ---
SNACK, FLUIDS, AZALIA PASS, AND CLOTHES PROVIDED. PATIENT CONINUTED TO REFUSE DISCHARGE. SECURITY NOTIFIED AND ASSISTED WITH SAFE DISCHARGE.
== END 2019-10-03 09:34 | disposition home or self-care (01) ==
LOC: ED 06:11
DX: R55 Syncope and collapse (principal); T69.022A Immersion foot, left foot, initial encounter; T69.021A Immersion foot, right foot, initial encounter; R19.7 Diarrhea, unspecified; J43.9 Emphysema, unspecified; Z72.9 Problem related to lifestyle, unspecified; Z90.49 Acquired absence of other specified parts of digestive tract; Z90.710 Acquired absence of both cervix and uterus
CPT/HCPCS: 36415; 80053; 85025; 93005; 96360; 99284; J7030

== ENCOUNTER 2019-10-19 18:33 | Emergency (ER) | payer MEDICARE, MEDICAID ==
[~2019-10-19] VITALS: Ht 165.1 cm; Wt 54.0 kg
[2019-10-19 18:38] VITALS: BP 137/63
--- NOTE | 2019-10-19 19:10 | NUR ---
Break RN note: Pt c/o bilat foot pain states "It hurts when I walk." Pt with blisters on the bottoms of bilat feet. Pt rambling speech, talking about multiple subjects including being upset with [employer] for not calling 911 for her and also the ambulance company that transported her to the hospital. Pt agreeable to removing her shoes and socks so that her feet may be evaluated but declines changing into a hospital gown. Pt provided with warm blanket. Pt educated that yelling at hospital staff members will not be tolerated. Pt continues speaking to this RN with raised voice. Pt encouraged again to attempt to remain calm. Awaiting provider eval for further orders.
[2019-10-19] MEDS ORDERED: ACETAMINOPHEN 325 MG TABLET ONE (20:13)
[2019-10-19] MEDS ORDERED: IBUPROFEN 600 MG TABLET ONE (20:13)
[2019-10-19 20:22] LABS: BASOPHILS # (AUTO) 0.03 x10^3/uL (0-0.1); BASOPHILS % (AUTO) 0 % (0-1); EOSINOPHILS # (AUTO) 0.03 x10^3/uL (0-0.4); EOSINOPHILS % (AUTO) 0 % (1-7); LYMPHOCYTES # (AUTO) 1.06 x10^3/uL (1-3.4); LYMPHOCYTES % (AUTO) 13 % (22-44); MD NO; MEAN CORPUSCULAR HEMOGLOBIN 30.5 pg (27.0-34.8); MEAN CORPUSCULAR HGB CONC 33.1 g/dL (32.4-35.8); MEAN CORPUSCULAR VOLUME 92.3 fL (80-100); MEAN PLATELET VOLUME 8.4 fL (7.4-10.4); MONOCYTES # (AUTO) 0.78 x10^3/uL (0.2-0.8); MONOCYTES % (AUTO) 9 % (2-9); NEUTROPHILS # (AUTO) 6.44 x10^3/uL (1.8-6.8); NEUTROPHILS % (AUTO) 77 % (42-75); PLATELET COUNT 242 x10^3/uL (130-400); RED CELL DISTRIBUTION WIDTH 16.4 % (9.6-15.2)
[2019-10-19] MEDS ORDERED: ACETAMINOPHEN 325 MG TABLET PO ONE (20:30)
[2019-10-19] MEDS ORDERED: IBUPROFEN 200 MG TABLET PO ONE (20:30)
[2019-10-19 20:34] LABS: ALBUMIN 3.3 g/dL (3.4-5.0); ANION GAP 8 mmol/L (5-15); CALCIUM 8.6 mg/dL (8.5-10.1); CHLORIDE 108 mmol/L (98-107); CREATININE 0.66 mg/dL (0.55-1.02)
--- NOTE | 2019-10-19 20:36 | NUR ---
Dr. Caicedo at bedside to evaluate pt. Pt continues with hostile behavior, yelling at MD and this RN. Pt advised by MD that she must not treat staff members with hostility or she will be asked to leave. Pt continues behavior despite this. Per security called to escort pt off property.
[2019-10-19 20:40] LABS: ALANINE AMINOTRANSFERASE 19 U/L (12-78); ALKALINE PHOSPHATASE 86 U/L (45-117); BILIRUBIN,TOTAL 0.5 mg/dL (0.2-1.0)
--- NOTE | 2019-10-19 20:54 | NUR ---
pt verbally aggressive toward all staff. pt continues to yell and tell staff that she is unhappy with care from [employer], the ambulance and from [facility] staff. pt provided with blankets and tissues upon request, then proceeds to kick/throw items on floor and becomes upset that she "never got anything and you guys aren't helping me!" Dr. Caicedo to bs to evaluate pt. pt continues to refuse all interventions. per Dr. Caicedo, pt ok to dc. attempted dc and perscription education. pt refused to listen and continued to yell at staff. clean, dry socks provided as pt's were wet. pt refusing to get dressed and gather belongings. security notified and present at bs to escort pt to exit.
== END 2019-10-19 21:00 | disposition home or self-care (01) ==
LOC: ED 19:40
DX: J00 Acute nasopharyngitis [common cold] (principal); R19.7 Diarrhea, unspecified; Z76.0 Encounter for issue of repeat prescription
CPT/HCPCS: 36415; 80053; 83690; 85025; 99283

== ENCOUNTER 2019-10-30 18:37 | Emergency (ER) | payer MEDICARE, MEDICAID ==
[~2019-10-30] VITALS: Ht 162.6 cm; Wt 50.8 kg
[2019-10-30 18:39] VITALS: BP 121/68
[2019-10-30] MEDS ORDERED: IBUPROFEN 200 MG TABLET ONE (19:23)
[2019-10-30] MEDS ORDERED: IBUPROFEN 200 MG TABLET PO ONE (19:30)
--- NOTE | 2019-10-30 19:38 | NUR ---
MEDS PER MAR.
--- NOTE | 2019-10-30 20:44 | NUR ---
cxr shows small foci R lung pna. as
[2019-10-30] MEDS ORDERED: AZITHROMYCIN 250 MG TABLET ONE ×2 (21:18→21:20)
[2019-10-30] MEDS ORDERED: AZITHROMYCIN 500 MG TABLET PO ONE (21:30)
== END 2019-10-30 21:51 | disposition home or self-care (01) ==
LOC: ED 19:12
DX: S80.02XA Contusion of left knee, initial encounter (principal); S80.01XA Contusion of right knee, initial encounter; J15.9 Unspecified bacterial pneumonia; M19.132 Post-traumatic osteoarthritis, left wrist; M19.131 Post-traumatic osteoarthritis, right wrist; M19.142 Post-traumatic osteoarthritis, left hand; M19.141 Post-traumatic osteoarthritis, right hand; J44.9 Chronic obstructive pulmonary disease, unspecified; G89.29 Other chronic pain; F17.210 Nicotine dependence, cigarettes, uncomplicated; Z90.89 Acquired absence of other organs; Z90.49 Acquired absence of other specified parts of digestive tract; Z90.710 Acquired absence of both cervix and uterus; W01.0XXA Fall on same level from slipping, tripping and stumbling without subsequent striking against object, initial encounter; Y93.89 Activity, other specified; Y92.241 Library as the place of occurrence of the external cause; Y99.8 Other external cause status
CPT/HCPCS: 71045; 99283

== ENCOUNTER 2019-11-19 18:12 | Emergency (ER) | payer MEDICARE, MEDICAID ==
[~2019-11-19] VITALS: Ht 162.6 cm; Wt 55.0 kg
[2019-11-19 18:30] VITALS: BP 114/69
[2019-11-19 19:02] LABS: BASOPHILS # (AUTO) 0.01 x10^3/uL (0-0.1); BASOPHILS % (AUTO) 0 % (0-1); EOSINOPHILS # (AUTO) 0.01 x10^3/uL (0-0.4); EOSINOPHILS % (AUTO) 0 % (1-7); LYMPHOCYTES # (AUTO) 0.31 x10^3/uL (1-3.4); LYMPHOCYTES % (AUTO) 5 % (22-44); MD NO; MEAN CORPUSCULAR HEMOGLOBIN 30.4 pg (27.0-34.8); MEAN CORPUSCULAR HGB CONC 32.8 g/dL (32.4-35.8); MEAN CORPUSCULAR VOLUME 92.5 fL (80-100); MEAN PLATELET VOLUME 9.4 fL (7.4-10.4); MONOCYTES # (AUTO) 0.14 x10^3/uL (0.2-0.8); MONOCYTES % (AUTO) 2 % (2-9); NEUTROPHILS # (AUTO) 6.16 x10^3/uL (1.8-6.8); NEUTROPHILS % (AUTO) 93 % (42-75); PLATELET COUNT 224 x10^3/uL (130-400); RED CELL DISTRIBUTION WIDTH 16.8 % (9.6-15.2)
[2019-11-19 19:11] LABS: ALBUMIN 3.6 g/dL (3.4-5.0); ANION GAP 8 mmol/L (5-15); CALCIUM 8.8 mg/dL (8.5-10.1); CHLORIDE 109 mmol/L (98-107)
[2019-11-19 19:22] LABS: ALANINE AMINOTRANSFERASE 23 U/L (12-78); ALKALINE PHOSPHATASE 96 U/L (45-117); BILIRUBIN,TOTAL 0.7 mg/dL (0.2-1.0); CREATININE 0.83 mg/dL (0.55-1.02); TOTAL PROTEIN 7.7 g/dL (6.4-8.2)
[2019-11-19] MEDS ORDERED: SODIUM CHLORIDE FLUSH 10ML SYR IVF ONE (21:00)
[2019-11-19] MEDS ORDERED: SODIUM CHLORIDE 0.9% 1,000ML IVBOLUS ONE (21:00)
[2019-11-19] MEDS ORDERED: ONDANSETRON ODT 4 MG PO ONE (21:00)
[2019-11-19] MEDS ORDERED: LOPERAMIDE 2 MG CAPSULE PO ONE (21:00)
--- NOTE | 2019-11-19 21:04 | NUR ---
PT SCREAMING AT STAFF, MUTIPLE ATTEMPTS TO REASON WITH PT WITH NO SUCESS. PT AMBULATING TO SHOWER AT THIS TIME
[2019-11-19] MEDS ORDERED: ONDANSETRON ODT 4 MG ONE (21:26)
[2019-11-19] MEDS ORDERED: LOPERAMIDE 2 MG CAPSULE ONE (21:26)
== END 2019-11-19 22:29 | disposition home or self-care (01) ==
LOC: ED 21:16
DX: K52.9 Noninfective gastroenteritis and colitis, unspecified (principal); J44.9 Chronic obstructive pulmonary disease, unspecified; Z90.49 Acquired absence of other specified parts of digestive tract; Z90.710 Acquired absence of both cervix and uterus; Z93.0 Tracheostomy status; Z59.0 Homelessness
CPT/HCPCS: 36415; 80053; 83690; 85025; 99283; Q0162

== ENCOUNTER 2020-06-07 20:19 | Emergency (ER) | payer MEDICARE, MEDICAID ==
[~2020-06-07] VITALS: Ht 162.6 cm; Wt 64.1 kg
[2020-06-07 20:22] VITALS: BP 112/76
--- NOTE | 2020-06-07 20:54 | NUR ---
3 pt belonging bags placed in locker. Patient was covered in feces. Patient taken to bathroom to clean up. Urine sample collected and sent to lab. RN notified.
--- NOTE | 2020-06-07 21:12 | NUR ---
PT LAYING IN BED, NO SIGNS OF DISTRESS, WILL CONTINUE TO MONITOR.
[2020-06-07 21:21] LABS: BASOPHILS # (AUTO) 0.01 x10^3/uL (0-0.1); BASOPHILS % (AUTO) 0 % (0-1); EOSINOPHILS % (AUTO) 2 % (1-7); LYMPHOCYTES # (AUTO) 0.87 x10^3/uL (1-3.4); LYMPHOCYTES % (AUTO) 18 % (22-44); MD NO; MEAN CORPUSCULAR HGB CONC 33.4 g/dL (32.4-35.8); MEAN CORPUSCULAR VOLUME 98.8 fL (80-100); MEAN PLATELET VOLUME 8.5 fL (7.4-10.4); MONOCYTES # (AUTO) 0.51 x10^3/uL (0.2-0.8); MONOCYTES % (AUTO) 11 % (2-9); NEUTROPHILS % (AUTO) 69 % (42-75); PLATELET COUNT 190 x10^3/uL (130-400); RED BLOOD COUNT 3.48 x10^6/uL (3.82-5.3); RED CELL DISTRIBUTION WIDTH 13.8 % (9.6-15.2)
[2020-06-07 21:27] LABS: AMPHETAMINE SCREEN, URINE Negative (Negative); BARBITURATE SCREEN, URINE Negative (Negative); BENZODIAZEPINE SCREEN, URINE Negative (Negative); CANNABINOID SCREEN, URINE Negative (Negative); COCAINE SCREEN, URINE Negative (Negative); METHADONE SCREEN, URINE Negative (Negative); OPIATE SCREEN, URINE Negative (Negative)
[2020-06-07 21:31] LABS: ALANINE AMINOTRANSFERASE 17 U/L (12-78); ALBUMIN 2.9 g/dL (3.4-5.0); ANION GAP 7 mmol/L (5-15); CALCIUM 8.7 mg/dL (8.5-10.1); CHLORIDE 109 mmol/L (98-107); CREATININE 1.02 mg/dL (0.55-1.02); SALICYLATE LEVEL 2.3 mg/dL (2.8-20.0)
[2020-06-07 21:33] LABS: ALKALINE PHOSPHATASE 57 U/L (45-117); BILIRUBIN,TOTAL 0.2 mg/dL (0.2-1.0); TOTAL PROTEIN 6.8 g/dL (6.4-8.2)
--- NOTE | 2020-06-07 22:07 | NUR ---
PT HAS TALKED WITH TELESPYCH CONSULT, AWAITING PLAN.
--- NOTE | 2020-06-08 00:40 | NUR ---
PT CONTINUES TO SLEEP. [facility] CALLED FOR NURSE TO NURSE EVALULATION. AWAITING ACCEPTING DECISION.
--- NOTE | 2020-06-08 01:05 | NUR ---
MT: [facility] ACCEPTED PT AND ACCEPTING PHYSICIAN IS DR. MOODY. RN WILL BE BRYAN. RM NUMBER IS [id number].
--- NOTE | 2020-06-08 01:41 | NUR ---
REPORT GIVEN TO Lenny ROBERSON.
== END 2020-06-08 07:50 ==
LOC: ED 21:54 → 3E 06-08 01:54 → UNDOADMIN 06-08 01:54 → ED 06-08 07:50
DX: R45.851 Suicidal ideations (principal); J43.9 Emphysema, unspecified; G89.29 Other chronic pain; R00.0 Tachycardia, unspecified
CPT/HCPCS: 36415; 80053; 80307; 85025; 99285

== ENCOUNTER 2021-01-08 12:37 | Emergency (ER) | payer MEDICARE, MEDICAID ==
[~2021-01-08] VITALS: Ht 162.6 cm; Wt 59.0 kg
[~2021-01-08 12:37] MED LIST changes: -CYCL-259 PO; +CYCL10TA2 PO; +DIVA500T4 PO; +HYDR-1067 PO; -HYDR-3240 PO; +LEVO25TA2 PO; +MELA5TAB14 PO; +METH-640 PO; -METH750T2 PO; -NICO-487 TD; +NICO-587 TD; -OXYC5TAB3 PO; +OXYC5TAB98 PO; +QUET100T PO
[2021-01-08 13:22] VITALS: BP 108/75
--- NOTE | 2021-01-08 13:29 | NUR ---
Pt BIB EMS from halfway, pt states that she was at [facility] a week ago for about 4 days and she was not ready to leave and fears she will hurt herself stating "I'm afraid to sleep, I'm having terrible nightmares". A&O x4, speaking to herself in full sentences, VSS. When asked about past med hx and medications the pt takes she explained she is noncompliant. Provided warm blanket, water, and positioned for comfort. Sitter outside room.
--- NOTE | 2021-01-08 13:44 | NUR ---
When asking the pt if she has ever had thoughts of hurting herself or others the pt responded "not myself but I want to hurt my roommate, he has a gun and I've thought about shooting myself or him".
[2021-01-08] MEDS ORDERED: DIVALPROEX 500 MG TABLET.DR PO ONE (14:00)
[2021-01-08] MEDS ORDERED: QUETIAPINE 25MG TABLET PO ONE (14:00)
[2021-01-08 14:17] LABS: ALANINE AMINOTRANSFERASE 22 U/L (12-78); ALBUMIN 3.7 g/dL (3.4-5.0); ANION GAP 7 mmol/L (5-15); CALCIUM 8.5 mg/dL (8.5-10.1); CHLORIDE 111 mmol/L (98-107); CREATININE 0.91 mg/dL (0.55-1.02); SALICYLATE LEVEL 3.2 mg/dL (2.8-20.0)
[2021-01-08 14:23] LABS: BASOPHILS % (AUTO) 1 % (0-1); EOSINOPHILS % (AUTO) 1 % (1-7); LYMPHOCYTES % (AUTO) 30 % (22-44); MEAN CORPUSCULAR HEMOGLOBIN 31.8 pg (27.0-34.8); MEAN CORPUSCULAR HGB CONC 33.6 g/dL (32.4-35.8); MEAN PLATELET VOLUME 8.5 fL (7.4-10.4); MONOCYTES % (AUTO) 13 % (2-9); NEUTROPHILS % (AUTO) 55 % (42-75); PLATELET COUNT 234 x10^3/uL (130-400); RED BLOOD COUNT 4.29 x10^6/uL (3.82-5.3); RED CELL DISTRIBUTION WIDTH 12.6 % (9.6-15.2)
[2021-01-08 14:24] LABS: MD NO
[2021-01-08] MEDS ORDERED: DIVALPROEX 500 MG TABLET.DR ONE (14:25)
[2021-01-08] MEDS ORDERED: QUETIAPINE 25MG TABLET ONE (14:25)
[2021-01-08 14:26] LABS: ALKALINE PHOSPHATASE < 10 U/L (45-117); BILIRUBIN,TOTAL 0.4 mg/dL (0.2-1.0); FREE T4 (FREE THYROXINE) 1.04 ng/dL (0.76-1.46); TOTAL PROTEIN 7.7 g/dL (6.4-8.2)
--- NOTE | 2021-01-08 14:28 | NUR ---
TASK RN: MEDICATED PER MAR
--- NOTE | 2021-01-08 15:14 | NUR ---
Pt sitting up in bed talking to herself
--- NOTE | 2021-01-08 15:58 | NUR ---
Pt able to dress self fully and amblate to restroom and out of unit
== END 2021-01-08 16:14 | disposition home or self-care (01) ==
LOC: ED 15:11
DX: F31.12 Bipolar disorder, current episode manic without psychotic features, moderate (principal); J43.9 Emphysema, unspecified; G89.29 Other chronic pain; F17.210 Nicotine dependence, cigarettes, uncomplicated; Z90.49 Acquired absence of other specified parts of digestive tract; Z90.89 Acquired absence of other organs; Z98.61 Coronary angioplasty status; Z90.710 Acquired absence of both cervix and uterus
CPT/HCPCS: 36415; 80053; 80143; 80164; 80179; 80320; 84439; 84443; 85025; 99284; G0480

== ENCOUNTER 2021-02-05 23:14 | Emergency (ER) | payer MEDICARE, MEDICAID ==
[~2021-02-05] VITALS: Ht 162.6 cm; Wt 61.4 kg
[~2021-02-05 23:14] MED LIST changes: -HYDR-1067 PO; +HYDR-2214 PO
--- NOTE | 2021-02-05 23:24 | NUR ---
BIB EMS. PT HAD JAW PAIN WHILE EATING DINNER AT [facility]. NOTICED SHE HAD SOME SOB AND LOST HER INHALER. PT REFUSED INTERVENTIONS BY EMS, REFUSED IV, REFUSED ASPRIN, REFUSED BP. PT AGREED TO VITALS NOW, NOTED SWELLING IN BILAT LOWER EX, PT STATES HAS BEEN GETTING WORSE OVER A FEW WEEKS. EKG DONE AT BEDSIDE, AWAITING ERP EVAL
[2021-02-06] MEDS ORDERED: MORPHINE SULFATE 4 MG/ML, 1ML ONE (00:09)
[2021-02-06] MEDS ORDERED: ONDANSETRON 2MG/ML, 2ML ONE (00:09)
--- NOTE | 2021-02-06 00:19 | NUR ---
CXR COMPLETED, PT TO ULTRASOUND
[2021-02-06 00:24] LABS: BASOPHILS % (AUTO) 1 % (0-1); EOSINOPHILS % (AUTO) 3 % (1-7); LYMPHOCYTES % (AUTO) 19 % (22-44); MD NO; MEAN CORPUSCULAR HEMOGLOBIN 31.9 pg (27.0-34.8); MEAN CORPUSCULAR HGB CONC 33.7 g/dL (32.4-35.8); MEAN PLATELET VOLUME 8.2 fL (7.4-10.4); MONOCYTES % (AUTO) 13 % (2-9); NEUTROPHILS % (AUTO) 64 % (42-75); PLATELET COUNT 266 x10^3/uL (130-400); RED BLOOD COUNT 3.68 x10^6/uL (3.82-5.3); RED CELL DISTRIBUTION WIDTH 13.8 % (9.6-15.2)
[2021-02-06] MEDS ORDERED: MORPHINE SULFATE 4 MG/ML, 1ML IVPush PRN (00:30)
[2021-02-06] MEDS ORDERED: ONDANSETRON 2MG/ML, 2ML IVPush ONE (00:30)
[2021-02-06 00:34] LABS: ALANINE AMINOTRANSFERASE 31 U/L (12-78); ANION GAP 7 mmol/L (5-15); CALCIUM 8.5 mg/dL (8.5-10.1); CHLORIDE 109 mmol/L (98-107); CREATININE 0.71 mg/dL (0.55-1.02)
[2021-02-06 00:38] LABS: ALKALINE PHOSPHATASE 89 U/L (45-117); BILIRUBIN,TOTAL 0.3 mg/dL (0.2-1.0); TOTAL PROTEIN 6.7 g/dL (6.4-8.2); TROPONIN I < 0.015 ng/mL (0.000-0.045)
--- NOTE | 2021-02-06 01:33 | NUR ---
PT RESTING IN [facility], REFUSES TO KEEP CARDIAC MONITORS ON
[2021-02-06 02:33] VITALS: BP 117/60
== END 2021-02-06 02:43 | disposition home or self-care (01) ==
LOC: ED 23:27
DX: R51.9 Headache, unspecified (principal); R68.84 Jaw pain; R06.02 Shortness of breath; R42 Dizziness and giddiness; R11.0 Nausea; E03.9 Hypothyroidism, unspecified; Z88.8 Allergy status to other drugs, medicaments and biological substances; Z88.1 Allergy status to other antibiotic agents; Z87.891 Personal history of nicotine dependence
CPT/HCPCS: 36415; 71045; 80053; 83605; 84484; 85025; 93005; 93970; 96374; 96375; 99285; J2270; J2405

== ENCOUNTER 2021-02-17 00:03 | Emergency (ER) | payer MEDICARE, MEDICAID ==
[~2021-02-17] VITALS: Ht 162.6 cm; Wt 68.0 kg
--- NOTE | 2021-02-17 00:19 | NUR ---
EKG DONE IN TRIAGE.
[2021-02-17 01:06] LABS: BASOPHILS % (AUTO) 1 % (0-1); EOSINOPHILS % (AUTO) 4 % (1-7); LYMPHOCYTES % (AUTO) 31 % (22-44); MEAN CORPUSCULAR HEMOGLOBIN 32.5 pg (27.0-34.8); MEAN CORPUSCULAR HGB CONC 33.8 g/dL (32.4-35.8); MEAN PLATELET VOLUME 8.5 fL (7.4-10.4); MONOCYTES % (AUTO) 13 % (2-9); NEUTROPHILS % (AUTO) 51 % (42-75); PLATELET COUNT 234 x10^3/uL (130-400); RED CELL DISTRIBUTION WIDTH 14.2 % (9.6-15.2)
[2021-02-17 01:07] LABS: MD NO
[2021-02-17 01:13] LABS: ALBUMIN 3.2 g/dL (3.4-5.0); ANION GAP 9 mmol/L (5-15); CALCIUM 8.3 mg/dL (8.5-10.1); CHLORIDE 115 mmol/L (98-107); CREATININE 0.71 mg/dL (0.55-1.02)
[2021-02-17 01:17] LABS: TROPONIN I < 0.015 ng/mL (0.000-0.045)
[2021-02-17 02:16] VITALS: BP 132/74
== END 2021-02-17 02:22 | disposition home or self-care (01) ==
LOC: ED 01:17
DX: J45.30 Mild persistent asthma, uncomplicated (principal); E87.6 Hypokalemia; R07.89 Other chest pain; J43.9 Emphysema, unspecified; I25.2 Old myocardial infarction
CPT/HCPCS: 36415; 71045; 80048; 82040; 84484; 85025; 93005; 99285

== ENCOUNTER 2021-02-17 17:27 | Emergency (ER) | payer MEDICARE, MEDICAID ==
[~2021-02-17] VITALS: Ht 162.6 cm; Wt 57.0 kg
--- NOTE | 2021-02-17 17:42 | NUR ---
PT BIB EMS FOR GLF. PT HIT HER RIGHT SIDE OF HER HEAD. PT AMAN LOC. PT C/O NECK PAIN, RIGHT SIDE HEAD PAIN, SHOULDER PAIN, AND LEFT SIDE CP. PAIN 10/10.
[2021-02-17] MEDS ORDERED: ALBUTEROL/IPRATROPIUM 2.5MG/0.5MG, 3 ML NPPB ONE (18:30)
[2021-02-17] MEDS ORDERED: ALBUTEROL/IPRATROPIUM 2.5MG/0.5MG, 3 ML ONE (18:45)
--- NOTE | 2021-02-17 18:51 | NUR ---
BEDSIDE REPORT FROM SULAIMAN ROBERSON. PT CARE TRANSFERRED AT THIS TIME. PT RESTING ON GURNEY, NAD, APPEARS COMFORTABLE, BREATHING TREATMENT IN PROGRESS, VSS, [place] [facility].
--- NOTE | 2021-02-17 20:49 | NUR ---
PT BACK FROM CT AND BECAME ANGRY REGARDING STILL BEING IN ER. RN EXPLAINED THAT WE ARE WAITING FO RCT RESULTS. PT STATES "I DONT CARE, IM GOING, YOU GUYS TOLD ME TO FUCK OFF AND YOU GUYS DONT CARE ABOUT ME. YOU DIDNT EVEN FEED ME". RN PROVIDED SNACKS FOR PATIENT, PROVIDER TO BS TO TALK WITH PT REGARDING RESULTS. Patient given discharge instructions and they have confirmed that they understand the instructions. Patient ambulatory with steady gait. NAD, DENIES ADDITIONAL NEEDS, QUESTIONS ANSWERED APPROPRIATELY. PROVIDED BUS PASS PER REQUEST. NO PERSONAL BELONGINGS LEFT IN ROOM AFTER D Addendum: 02/17/21 at 2050 by BRYCE AFTER DISCHARGE*
[2021-02-17 20:51] VITALS: BP 124/64
== END 2021-02-17 20:53 | disposition home or self-care (01) ==
LOC: ED 18:53
DX: S06.0X0A Concussion without loss of consciousness, initial encounter (principal); F17.210 Nicotine dependence, cigarettes, uncomplicated; J45.30 Mild persistent asthma, uncomplicated; I10 Essential (primary) hypertension; W19.XXXA Unspecified fall, initial encounter; Y93.89 Activity, other specified; Y92.488 Other paved roadways as the place of occurrence of the external cause; Y99.8 Other external cause status
CPT/HCPCS: 70450; 94640; 99285

== ENCOUNTER 2021-02-20 13:22 | Emergency (ER) | payer MEDICARE, MEDICAID ==
[~2021-02-20] VITALS: Ht 162.6 cm; Wt 57.0 kg
[2021-02-20 13:26] VITALS: BP 138/84
--- NOTE | 2021-02-20 13:42 | NUR ---
Patient given discharge instructions and they have confirmed that they understand the instructions. Patient ambulatory with steady gait. Pt yelling at this RN about needing pain medication. Pt escorted to discharge desk. Pt provided a bus pass.
== END 2021-02-20 13:43 | disposition home or self-care (01) ==
LOC: ED 13:35
DX: S81.859A Open bite, unspecified lower leg, initial encounter (principal); J44.9 Chronic obstructive pulmonary disease, unspecified; G89.29 Other chronic pain; F17.200 Nicotine dependence, unspecified, uncomplicated; Z90.49 Acquired absence of other specified parts of digestive tract; Z90.710 Acquired absence of both cervix and uterus; Z98.61 Coronary angioplasty status; W57.XXXA Bitten or stung by nonvenomous insect and other nonvenomous arthropods, initial encounter; Y93.89 Activity, other specified; Y92.89 Other specified places as the place of occurrence of the external cause; Y99.8 Other external cause status
CPT/HCPCS: 99283

== ENCOUNTER 2021-04-23 05:51 | Emergency (ER) | payer MEDICARE, MEDICAID ==
[~2021-04-23] VITALS: Ht 162.6 cm; Wt 61.6 kg
[2021-04-23 05:55] VITALS: BP 122/80
[2021-04-23] MEDS ORDERED: OLANZAPINE ODT 10MG ONE (06:18)
[2021-04-23] MEDS ORDERED: OLANZAPINE ODT 10MG PO ONE (09:00)
== END 2021-04-23 07:03 | disposition home or self-care (01) ==
LOC: ED 06:44
DX: F31.9 Bipolar disorder, unspecified (principal); Z76.0 Encounter for issue of repeat prescription
CPT/HCPCS: 99281; 99283

== ENCOUNTER 2021-06-20 17:19 | Observation (INO) | payer MEDICARE, MEDICAID ==
[~2021-06-20] VITALS: Ht 162.6 cm; Wt 56.5 kg
[~2021-06-20 17:19] MED LIST changes: +OLAN10TA69 PO; -OLAN10TA9 PO; +OLAN5TAB69 PO; -OLAN5TAB9 PO; -QUET100T PO; +QUET100T2 PO; -QUET200T PO; +QUET200T2 PO
[2021-06-20] MEDS ORDERED: ASPIRIN 81 MG TABLET CHEW PO ONE (17:30)
[2021-06-20] MEDS ORDERED: MORPHINE SULFATE 4 MG/ML, 1ML IVPush PRN ×2 (17:30→19:00)
[2021-06-20] MEDS ORDERED: ONDANSETRON 2MG/ML, 2ML IVPush ONE (17:30)
--- NOTE | 2021-06-20 17:35 | NUR ---
PT IN HOSPITAL GOWN, PLACED ON DONATIONS ATTENDANT AND VITALS MONITORS. EKG DONE.
--- NOTE | 2021-06-20 17:40 | NUR ---
PT RECIEVED ASA 324MG ON AMBULANCE.
[2021-06-20 18:05] LABS: BASOPHILS % (AUTO) 1 % (0-1); EOSINOPHILS % (AUTO) 2 % (1-7); LYMPHOCYTES % (AUTO) 30 % (22-44); MEAN CORPUSCULAR HEMOGLOBIN 32.2 pg (27.0-34.8); MEAN CORPUSCULAR HGB CONC 33.8 g/dL (32.4-35.8); MEAN PLATELET VOLUME 9.6 fL (7.4-10.4); MONOCYTES % (AUTO) 10 % (2-9); NEUTROPHILS % (AUTO) 57 % (42-75); PLATELET COUNT 213 x10^3/uL (130-400); RED BLOOD COUNT 4.37 x10^6/uL (3.82-5.3); RED CELL DISTRIBUTION WIDTH 13.1 % (9.6-15.2)
[2021-06-20 18:16] LABS: ALANINE AMINOTRANSFERASE 10 U/L (12-78); ALBUMIN 3.3 g/dL (3.4-5.0); ANION GAP 14 mmol/L (5-15); CALCIUM 8.9 mg/dL (8.5-10.1); CHLORIDE 107 mmol/L (98-107); CREATININE 0.77 mg/dL (0.55-1.02)
[2021-06-20 18:20] LABS: ALKALINE PHOSPHATASE 84 U/L (45-117); BILIRUBIN,TOTAL 0.8 mg/dL (0.2-1.0); TOTAL PROTEIN 7.4 g/dL (6.4-8.2); TROPONIN I < 0.015 ng/mL (0.000-0.045)
[2021-06-20] MEDS ORDERED: ONDANSETRON 2MG/ML, 2ML ONE (18:24)
[2021-06-20] MEDS ORDERED: MORPHINE SULFATE 4 MG/ML, 1ML ONE (18:24)
--- NOTE | 2021-06-20 18:38 | NUR ---
PT MEDICATED PER EMAR FOR PAIN AND NAUSEA. PT AWARE SHE IS GOING TO BE ADMITTED
[2021-06-20] MEDS ORDERED: ONDANSETRON 2MG/ML, 2ML IVPush PRN ×2 (19:00→20:00)
[2021-06-20] MEDS ORDERED: LABETALOL 5MG/ML, 20ML IVPush PRN (20:00)
[2021-06-20] MEDS ORDERED: OXYcodone IR 5MG TABLET PO PRN (20:00)
[2021-06-20] MEDS ORDERED: NITROGLYCERIN 0.4 MG BOTTLE (25 TABS) SL PRN (20:00)
[2021-06-20] MEDS ORDERED: MELATONIN 5 MG TABLET PO PRN (20:00)
[2021-06-20] MEDS ORDERED: NITROGLYCERIN 0.4 MG/SPRAY SL PRN (20:00)
[2021-06-20] MEDS ORDERED: morphine SULFATE 10 MG/ML, 1ML IVPush PRN (20:00)
[2021-06-20] MEDS ORDERED: ACETAMINOPHEN 325 MG TABLET PO PRN (20:00)
[2021-06-20] MEDS ORDERED: ENOXAPARIN 40 MG/0.4 ML SQ SCH (20:00)
[2021-06-20] MEDS ORDERED: POLYETHYLENE GLYCOL 17 GM PACKET PO PRN (20:00)
[2021-06-20] MEDS ORDERED: KETOROLAC 30 MG/1 ML IV PRN (20:00)
[2021-06-20 20:45] LABS: TROPONIN I < 0.015 ng/mL (0.000-0.045)
[2021-06-20 21:19] VITALS: BP 122/77
[2021-06-20] MEDS ORDERED: TRAZODONE 100MG TABLET PO SCH (22:30)
[2021-06-20] MEDS: DIVALPROEX 500 MG TAB.ER.24H PO SCH (23:17)
[2021-06-20] MEDS: OLANZAPINE 5 MG TABLET PO SCH (23:17)
[2021-06-21 02:07] LABS: TROPONIN I < 0.015 ng/mL (0.000-0.045)
[2021-06-21 02:15] VITALS: BP 104/70
[2021-06-21 05:30] LABS: ANION GAP 9 mmol/L (5-15); CALCIUM 8.9 mg/dL (8.5-10.1); CHLORIDE 104 mmol/L (98-107); CREATININE 0.79 mg/dL (0.55-1.02)
[2021-06-21] MEDS ORDERED: LEVOTHYROXINE 25 MCG TABLET PO SCH (06:00)
[2021-06-21 08:00] VITALS: BP 100/66
[2021-06-21 08:15] LABS: BASOPHILS % (AUTO) 1 % (0-1); EOSINOPHILS % (AUTO) 2 % (1-7); LYMPHOCYTES % (AUTO) 40 % (22-44); MEAN CORPUSCULAR HEMOGLOBIN 31.9 pg (27.0-34.8); MEAN CORPUSCULAR HGB CONC 33.9 g/dL (32.4-35.8); MEAN PLATELET VOLUME 9.7 fL (7.4-10.4); MONOCYTES % (AUTO) 14 % (2-9); NEUTROPHILS % (AUTO) 44 % (42-75); PLATELET COUNT 216 x10^3/uL (130-400); RED BLOOD COUNT 4.11 x10^6/uL (3.82-5.3); RED CELL DISTRIBUTION WIDTH 13.2 % (9.6-15.2)
[2021-06-21] MEDS ORDERED: ASPIRIN 81 MG TABLET CHEW PO SCH (09:00)
[2021-06-21] MEDS ORDERED: REGADENOSON 0.4 MG/5 ML SYRINGE ONE (09:03)
[2021-06-21] MEDS: DIVALPROEX 500 MG TAB.ER.24H PO SCH (10:23)
[2021-06-21] MEDS: OLANZAPINE 5 MG TABLET PO SCH (10:24)
[2021-06-21 10:27] VITALS: BP 100/66
== END 2021-06-21 14:09 | disposition home or self-care (01) ==
LOC: ED 18:30 → EDIP 18:39 → INTOOBSV 18:39 → 5SO 21:39
PROVIDERS: ADMIT Internal Medicine; ATTEND Family Medicine
DX: R07.89 Other chest pain (principal); I25.110 Atherosclerotic heart disease of native coronary artery with unstable angina pectoris; R94.31 Abnormal electrocardiogram [ECG] [EKG]; R00.1 Bradycardia, unspecified; R11.2 Nausea with vomiting, unspecified; J44.9 Chronic obstructive pulmonary disease, unspecified; F17.200 Nicotine dependence, unspecified, uncomplicated; I25.2 Old myocardial infarction; F32.9 Major depressive disorder, single episode, unspecified; M81.0 Age-related osteoporosis without current pathological fracture; F12.90 Cannabis use, unspecified, uncomplicated; Z88.0 Allergy status to penicillin; Z91.5 Personal history of self-harm; Z90.710 Acquired absence of both cervix and uterus; Z79.899 Other long term (current) drug therapy
CPT/HCPCS: 36415; 71045; 78452; 80048; 80053; 83735; 84484; 85025; 93005; 93017; 96372; 96374; 96375; 99285; A9502; G0378; J1650; J2270; J2405; J2785; Q0177